=== PATIENT | male | born 1945 | race Caucasian/White ===

== ENCOUNTER 2018-07-10 11:42 | Day surgery (SDC) | payer MEDICARE, OTHER ==
[~2018-07-10 11:42] MED LIST: Buffered Lidocaine 0.9% SYRIN* 5 ML/SYR SYRINGE INTRADERM ONE
[2018-07-10] MEDS ORDERED: ceFAZolin 2 GM PREMIX in ORs 2 GM/50 ML BAG IVPB ONE (11:59)
[2018-07-10] MEDS ORDERED: Propofol* 10 MG/ML 20 ML BTL IV PUSH ONE (13:51)
[2018-07-10] MEDS ORDERED: Lidocaine 2% PF * 5 ML VIAL ONE (13:51)
[2018-07-10] MEDS ORDERED: Midazolam* 1 MG/ML 2 ML VIAL (2 MG) ONE (13:51)
[2018-07-10] MEDS ORDERED: fentaNYL* 50 MCG/ML 2 ML VIAL (100 MCG VIAL) ONE (13:51)
[2018-07-10] MEDS ORDERED: Sterile Water for Inj* 10 ML ONE ×2 (14:09→14:35)
[2018-07-10] MEDS ORDERED: ROPIVACAINE 5 MG/ML 30 ML BTL (0.5%) ONE ×2 (14:09→14:41)
[2018-07-10] MEDS ORDERED: Sterile Water for Inj* 20 ML ONE (14:10)
[2018-07-10] MEDS ORDERED: Rocuronium* 10 MG/ML VIAL ONE ×2 (14:10→16:35)
[2018-07-10] MEDS ORDERED: fentaNYL* 50 MCG/ML 2 ML VIAL (100 MCG VIAL) IV PRN (16:16)
[2018-07-10] MEDS ORDERED: Naloxone* 0.4 MG/ML 1 ML VIAL IV PRN (16:16)
[2018-07-10] MEDS ORDERED: oxyCODONE/Acetamin 5/325 MG* TAB PO PRN (16:16)
[2018-07-10] MEDS ORDERED: DiMENhydriNATE IV* 50 MG/ML VIAL IV PUSH PRN (16:16)
[2018-07-10] MEDS ORDERED: Acetaminophen IV 1GM/100ML * 100 ML ONE (16:18)
[2018-07-10] MEDS ORDERED: Glycopyrrolate IV* 0.2 MG/ML 1 ML VIAL ONE (16:54)
[2018-07-10 18:35] VITALS: BP 113/60
--- NOTE | 2018-07-15 14:20 | OP ---
OPERATIVE REPORT: DATE OF OPERATION: 07/10/18 DATE OF : 45 SURGEON: Aba Monsalve MD. FIELD BROOMER: MARCO Marcelo. An specimen preparation assistant was needed for the entirety of the case to help with positioning, retraction and was utilized throughout all portions of the case. ANESTHESIOLOGIST: Dr. Coughlin ANESTHESIA: General, interscalene block. PRE-OP DIAGNOSES: Right shoulder rotator cuff tear with bicipital tendinitis and tendinosis, AC joint arthritis. POST-OP DIAGNOSIS: Right shoulder rotator cuff tear with bicipital tendinitis and tendinosis, AC joint arthritis. OPERATIVE PROCEDURE: 1. Right shoulder arthroscopy with extensive glenohumeral debridement including chondroplasty. 2. Rotator cuff repair of the subscapularis tendon. 3. Rotator cuff repair in double-row fashion of the supraspinatus and infraspinatus tendons. 4. Subacromial decompression with acromioplasty. 5. Distal clavicle incision. 6. Subpectoral biceps tenodesis. COMPLICATIONS: None. ESTIMATED BLOOD LOSS: Minimal. IMPLANTS USED: One 2.8 Q-Fix, two 4.75 Healicoils, two 5.5 Multi-Fixes. INDICATIONS: Mr. Jenkins is a 73-year-old male who sustained an injury to his right shoulder on 03/26/18 when he slipped and fell. He failed physical therapy and conservative management. An MRI had demonstrated full thickness tear of the rotator cuff. Risks and benefits of the surgery were discussed at length and included, but not limited to bleeding, infection, damage to nearby vessels, surrounding structures, wound nonhealing, persistent pain, need for further surgery, scarring, stiffness, incomplete relief of symptoms, risks of anesthesia. DESCRIPTION OF PROCEDURE: The patient was greeted in the preoperative area by the attending surgeon. Correct extremity was marked and consent was confirmed. The patient underwent interscalene nerve block by the anesthesiologist, after which he was brought back to the operating suite. He was placed in supine position on the operating table and underwent general anesthesia and endotracheal intubation, after which he was appropriately positioned in the left lateral decubitus position with all bony prominences were padded and secured with the peg board and an axillary roll. His right arm was draped unsterile with 10 pounds of traction. The right shoulder was then prepped and draped in usual sterile fashion beginning with chlorhexidine soap, scrub, and alcohol wipe, and a final prep with ChloraPrep. After appropriate surgical pause indicating site, side, procedure, and administration of antibiotics, the posterolateral portal was made sharply with an 11 blade and the scope was introduced into the joint, joint was examined. There were areas of grade 2 changes in the left glenohumeral joint. There were small loose bodies in the inferior recess. There was evidence of superior labral tear with displacement and the biceps being subluxed. The subscap was torn as well and the surface supraspinatus was found to be torn and retracted including part of the infraspinatus. There was abundant synovitis as well. The anterior portal was made in an outside fashion. Shaver was used to debride back the anterior, posterior, and superior labrym as well as do a chondroplasty to remove the loose debris. The biceps was then tenotomized for later tenodesis. The scope was then positioned at the subacromial space. With the scope in the subacromial space through the lateral portal, the shaver was used to debride back the abundant bursa. The undersurface of the acromion was then electrocauterized. Electrocautery device was then used to skeletonize the acromion, which revealed anterior lateral spurs. CA ligament was gently released. The 4-0 oval gary was then used to gently do an acromioplasty. This was taken back towards the AC joint, which was identified and the attention was directed to the AC joint. The gary was brought through the anterior portal and the distal 8-mm clavicle was then debrided back including some of the acromion as the patient had an oblong shaped AC joint. This was then visualized and found to be completely released. He also had a small loose body that was present there that was also were removed. Attention was then directed to the rotator cuff. The scope was used to visualize and there was tearing at the proximal third of the subscap. The decision was made to repair this as this was a large supraspinatus tear as well that involved this. Therefore, through a separate stab incision, the lesser tuberosity was prepared in usual fashion with a rasp as well as a 4-0 oval gary. After this was done, a suture tape then passed through the subscap and then passed through a knotless anchor and 5.5 Multi-Fix anchor was then used to secure the tendon. After this was done, attention was directed to the remainder of the rotator cuff repair. The greater tuberosity was then visualized and prepared using the rasp as well the shaver. Electrocautery device was used to remove all the soft tissue. The 4-0 oval gary was used to decorticate the greater tuberosity. After this was done, two 4.75 Healicoils were placed upon the medial aspect of the footprint and these were placed with with good purchase as the bone quality was okay. The sutures were then passed through the tendon in a horizontal mattress configuration and tied down. After which, the sutures were then passed through 5.5 Multi-Fix to be placed in lateral row for fixation. Final images were obtained and the wound was copiously irrigated and attention was directed to the biceps. The bed was airplaned to the right side and the anterior aspect of the shoulder was prepped again using the ChloraPrep. A 15-blade was used to make incision along the biceps tendon. Soft tissues were carefully exposed until the pec fascia was identified. Then, the pec was elevated. Bicipital groove was palpated. The biceps was brought through the wound and then the groove was repaired in the usual fashion. The Q-Fix anchor was then deployed with excellent purchase unicortically. The biceps was shuttled in a Sanjeev-Silas type configuration. The biceps was then secured. The wounds were copiously irrigated with sterile saline. The anterior wound was closed in layers with 2- 0 Vicryl, 3-0 Monocryl and 3-0 nylon was used to close the portals. Sterile dressings were applied and Cryo/Cuff was applied. He was awoken from anesthesia and transferred to the PACU in stable condition. POSTOPERATIVE PLAN: He will be nonweightbearing. He will be elbow, hand, and wrist range of motion as tolerated. He will be discharged on pain medication and antibiotics. I will see the patient back in 10 to 14 days. [id number]/[facility] #: [id number] IRENA
== END 2018-07-10 18:56 | disposition home or self-care (01) ==
LOC: OREAST 11:42
PROVIDERS: ATTEND Orthopaedic Surgery
DX: S46.011A Strain of muscle(s) and tendon(s) of the rotator cuff of right shoulder, initial encounter (principal); M75.21 Bicipital tendinitis, right shoulder; M19.011 Primary osteoarthritis, right shoulder; G89.18 Other acute postprocedural pain; Z95.5 Presence of coronary angioplasty implant and graft; K21.9 Gastro-esophageal reflux disease without esophagitis; K58.9 Irritable bowel syndrome, unspecified; W01.0XXA Fall on same level from slipping, tripping and stumbling without subsequent striking against object, initial encounter; Y92.009 Unspecified place in unspecified non-institutional (private) residence as the place of occurrence of the external cause
CPT/HCPCS: C1713; C1776; J0690; J2250; J2704; J2795; J3010

== ENCOUNTER 2019-10-26 09:07 | Day surgery (SDC) | payer MEDICARE, OTHER ==
[~2019-10-26 09:07] MED LIST changes: -Buffered Lidocaine 0.9% SYRIN* 5 ML/SYR SYRINGE INTRADERM ONE; +Buffered Lidocaine 1% SYRIN* 1 ML/SYRINGE INTRADERM ONE; +Dexamethasone TAB* 4 MG PO ONE; +DiMENhydriNATE IV* 50 MG/ML VIAL IV PUSH PRN; +Famotidine IV* 10 MG/ML 2 ML (20 mg) IV ONE; +HYDROmorphone INJ1* 1 MG/ML SYRINGE IV PRN; +Lactated Ringers 1000 ML Bag* 1,000 ML IV SCH; +Naloxone* 0.4 MG/ML 1 ML VIAL IV PRN; +Ondansetron ODT TAB* 4 MG PO ONE; +PROCHLORPERAZINE INJ 5 MG/ML 2 ML VIAL IV PRN; +fentaNYL* 50 MCG/ML 2 ML VIAL (100 MCG VIAL) IV PRN; +oxyCODONE TAB* 5 MG TAB PO PRN
[2019-10-26] MEDS ORDERED: Ondansetron ODT TAB* 4 MG ONE (09:21)
[2019-10-26] MEDS ORDERED: Famotidine IV* 10 MG/ML 2 ML (20 mg) ONE (09:21)
[2019-10-26] MEDS ORDERED: ceFAZolin 2 GM in NS PREMIX(*) 2 GM/100 ML BAG IVPB ONE (09:21)
[2019-10-26] MEDS ORDERED: Dexamethasone TAB* 4 MG ONE (09:21)
[2019-10-26] MEDS ORDERED: fentaNYL* 50 MCG/ML 2 ML VIAL (100 MCG VIAL) ONE (09:26)
[2019-10-26] MEDS ORDERED: Lidocaine 2% PF * 5 ML VIAL ONE (09:26)
[2019-10-26] MEDS ORDERED: Sugammadex * 500 MG/5 ML VIAL IV PUSH ONE (09:26)
[2019-10-26] MEDS ORDERED: Ketorolac INJ* 30 MG/ML 1 ML VIAL ONE (09:26)
[2019-10-26] MEDS ORDERED: Acetaminophen IV 1GM/100ML * 100 ML ONE (09:26)
[2019-10-26] MEDS ORDERED: Propofol* 10 MG/ML 20 ML BTL ONE (09:26)
[2019-10-26] MEDS ORDERED: Rocuronium* 10 MG/ML VIAL ONE (09:27)
[2019-10-26] MEDS ORDERED: Midazolam* 1 MG/ML 5 ML VIAL (5 MG) ONE (09:27)
[2019-10-26] MEDS ORDERED: KETAMINE HCL* 50 MG/ML 10 ML VIAL ONE (09:27)
[2019-10-26] MEDS ORDERED: Bupivacaine 0.5% W/EPI SDV* 10 ML VIAL INJ ONE (11:00)
[2019-10-26] MEDS ORDERED: EPHEDrine (Pressors)* 50 MG/ML VIAL ONE (11:39)
[2019-10-26] MEDS ORDERED: Labetalol IV* 5 MG/ML 20 ML VIAL ONE (12:16)
[2019-10-26] MEDS ORDERED: hydrALAZINE IV* 20 MG/ML VIAL ONE (12:16)
--- NOTE | 2019-10-26 12:26 | BRIEFOPN ---
Brief Operative/Procedure Note - Operation Details Pre-Op Diagnosis: Left inguinal hernia Post-Op Diagnosis: same; direct Procedures: Laparoscopic repair Left inguinal hernia with mesh Surgeon(s)/Proceduralists: Atif. Assist: MARCO Dean Anesthesia: GET Estimated Blood Loss: none Findings: as above Specimen(s)/Culture(s) Description: none Complications: none
[2019-10-26] MEDS ORDERED: oxyCODONE TAB* 5 MG TAB ONE (12:54)
[2019-10-26 15:58] VITALS: BP 133/90
--- NOTE | 2019-10-27 02:50 | OP ---
DATE OF OPERATION: 10/26/19 [facility] DATE OF : 45 SURGEON: Noel Srivastava MD EXECUTIVE COMPENSATION ANALYST: MARCO Ontiveros ANESTHESIOLOGIST: Dr. Portillo. ANESTHESIA: General with local. PRE-OP DIAGNOSIS: Left inguinal hernia. POST-OP DIAGNOSIS: Left direct inguinal hernia. OPERATIVE PROCEDURE: Total extraperitoneal laparoscopic repair with mesh of a left direct inguinal hernia. ESTIMATED BLOOD LOSS: Minimal. IV FLUIDS: 1 L of crystalloid. SPECIMENS: None. WOUND CLASSIFICATION: I. COMPLICATIONS: None. DRAINS: None. FINDINGS: Direct space left inguinal hernia. DESCRIPTION OF PROCEDURE: The left groin was marked with indelible ink and preoperative antibiotics were administered. The patient was taken to the operating room and placed in the supine position. Sequential compression devices and a warming blanket were applied. General anesthesia was administered. A Tanner catheter was inserted. The abdomen and both groins were prepped and draped in the usual sterile fashion. Time-out verification was completed. Initially, 0.25% Marcaine mixed with 1% lidocaine was infiltrated at the midline just below the umbilicus and a transverse incision was made slightly to the left of midline to expose the anterior left rectus sheath. This was divided and the underlying muscle was retracted laterally to expose the posterior sheath. This space was developed bluntly to the pubic tubercle and down towards the pubic tubercle and the space maker balloon was inserted and passed down until it oppose the superior aspect of the pubic tubercle. The balloon was then inflated with approximately 10 squeezes of the balloon under direct vision. The space maker balloon was then removed and a 12-mm blunt port was inserted in the extraperitoneal space and this was insufflated to 12 mmHg. The patient was placed in Trendelenburg position. Under direct vision, two 5-mm ports were placed inferiorly at the midline. The balloon had dissected the space nicely and we were able to identify the tubercle medially and the left Collin's ligament. The epigastric vessels were identified as they ascended up on to the anterior abdominal wall in the usual position. More laterally, an adventitial tissue was bluntly dissected to expose the anterior abdominal pain as well as the iliopubic tract out to the iliac crest. We were able to identify the peritoneal reflection more laterally following this medially. It did not appear that there was an indirect inguinal hernia. The spermatic cord and its contents including the vas deferens were identified and carefully evaluated. No evidence of an indirect hernia was noted. It was obvious that there was some fat extending up into the an indirect hernia space, which was reduced. The pseudosac was identified and placed back into the anterior abdominal wall. There did not appear to be a femoral hernia. Once this was complete and hemostasis was assured, a 10 cm x 15 cm ProGrip self gripping mesh was then placed in the extraperitoneal space and placed over both the direct and indirect space with generous overlap anteriorly and along the retroperitoneum of both spaces. The mesh extended to the right of midline as well as out to the iliac crest. Carefully examined the mesh for any wrinkles and also making sure that there was no peritoneum along the posterior retroperitoneal space near the mesh. We then desufflated the extraperitoneal space under direct vision without difficulty. The anterior rectus sheath was closed with interrupted 0 Vicryl suture. The skin at all 3 incisions were approximated with subcuticular 4-0 Vicryl suture. Steri-Strips were applied. The patient tolerated the procedure well and was taken to the recovery room in stable condition. [id number]/[facility] #: [id number] MTDD
== END 2019-10-26 16:04 | disposition home or self-care (01) ==
LOC: OR 09:07
PROVIDERS: ATTEND Surgery
DX: K40.90 Unilateral inguinal hernia, without obstruction or gangrene, not specified as recurrent (principal); E78.5 Hyperlipidemia, unspecified; Z87.891 Personal history of nicotine dependence; I25.10 Atherosclerotic heart disease of native coronary artery without angina pectoris; Z95.5 Presence of coronary angioplasty implant and graft; I10 Essential (primary) hypertension; N40.0 Benign prostatic hyperplasia without lower urinary tract symptoms
CPT/HCPCS: A9270-GY; C1781; J0360; J0690; J1885; J2250; J2704; J3010; J8540